=== PATIENT | male | born 1985 | race Caucasian/White ===

== ENCOUNTER 2017-01-19 18:00 | Inpatient (IN) | payer OTHER ==
[~2017-01-19] VITALS: Ht 177.8 cm; Wt 96.6 kg
--- NOTE | ~2017-01-19 | DS ---
Unit #: [id number] #: [id number] Patient: VANDANA HOLLIS [id number] [facility] [address] [place] [address] [id number] I MR#: [id number] NAME: VANDANA HOLLIS ROOM: [facility] Age: 31 Sex: M Admission Date: 01/19/2017 : 1985 Discharge Date: 01/23/2017 Attending Physician: Nguyễn Pal M.D. Primary Care Physician: Primary Care Physician No DISCHARGE SUMMARY REASON FOR ADMISSION Depression, opiate detox. DIAGNOSTIC STUDIES Laboratory data, urine drug screen positive for opiates. HOSPITAL COURSE The patient was admitted to inpatient unit, admitted on January 19 and Discharged on January 23, 2017. The patient was treated with group therapy, individual therapy, medication management, detox protocol, detox monitoring. The patient was responsive to treatment. Subsequently, the patient was discharged with the plan to follow up in outpatient program. DISCHARGE DIAGNOSES Psychiatric: [place] I Opiate use disorder, severe, F11.20. Sedative-hypnotic use disorder, severe, F13.20. Alcohol use disorder, severe, F10.20. Mood disorder, F32.9. [place] II Deferred. [place] III Hypertension. [place] IV Psychosocial stressors. [place] V INSTRUCTIONS TO PATIENT The patient is to follow up in outpatient clinic as well as with director social. DISCHARGE MEDICATIONS 1. Desyrel 100 mg at bedtime 2. Celexa 20 mg daily for depression CONDITION AT DISCHARGE The patient is pleasant, cooperative, denied any psychosis or any suicidal ideation. PROGNOSIS Guarded. DIET AND ACTIVITY As tolerated. Unit #: [id number] #: [id number] Patient: VANDANA HOLLIS Dictated by... Ludy Torres/regina TD: 01/24/2017 08:01 JOB #: [id number] DISCHARGE SUMMARY Page 1 of 1 X Nguyễn Pal MD X DISCHARGE SUMMARY
--- NOTE | ~2017-01-19 | PN ---
Unit #: [id number] #: [id number] Patient: NAHID GRIFFIN [id number] [facility] [address] [place] [address] [id number] MR#: [id number] NAME: NAHID GRIFFIN ROOM: [facility] Age: 31 Sex: M Admission Date: 01/19/2017 : 1985 Attending Physician: Nguyễn Pal M.D. Admitting Physician: Nguyễn Pal M.D. Primary Care Physician: Primary Care Physician Lola OLIVERA NOTES DATE 01/21/2017 DISCUSSION Nahid Griffin is a 31-year-old male seen on 01/21/2017. Patient interviewed. Chart reviewed. Obtained information from nursing staff. Patient was compliant, cooperative. Mood sad, dysphoric, flat affect, guarded. Patient tolerating medication fairly well. Patient's complete review of system unremarkable. MENTAL STATUS EXAMINATION General appearance, patient dressed casually. Attention span, concentration fair. Oriented in place and person. Mood and affect sad, dysphoric. Speech monotone. Thought process concrete. Patient denied any thoughts of harming self or others or any psychotic symptoms. Recent and remote memory poor. Insight and judgement poor. DIAGNOSES 1. Opiate use disorder, severe. 2. Sedative/hypnotic use disorder. 3. Alcohol use disorder. 4. Mood disorder NOS. ASSESSMENT/PLAN Advised to continue with current medication and therapeutic protocol. If needed, consider further adjustment of medication. Dictated by... Ludy Torres/sebastian TD: 01/22/2017 15:21 JOB #: [id number] Unit #: [id number] #: [id number] Patient: NAHID GRIFFIN SHANESTEFANIA PROGRESS NOTES Page 1 of 1 X Nguyễn Pal MD X PROGRESS NOTE
--- NOTE | ~2017-01-19 | PN ---
Unit #: [id number] #: [id number] Patient: NAHID GRIFFIN [id number] [facility] [address] [place] [address] [id number] I MR#: [id number] NAME: NAHID GRIFFIN ROOM: [facility] Age: 31 Sex: M Admission Date: 01/19/2017 : 1985 Attending Physician: Nguyễn Pal M.D. Admitting Physician: Nguyễn Pal M.D. Primary Care Physician: Primary Care Physician Lola [place] PROGRESS NOTES DATE 01/22/2017 DISCUSSION Nahid Griffin is a 31-year-old male seen on 01/22/2017. Patient interviewed. Chart reviewed. Obtained information from nursing staff. Patient compliant, cooperative. Mood sad, dysphoric, flat affect, guarded. Patient was able to maintain safe behavior. Complete review of system unremarkable. MENTAL STATUS EXAMINATION General appearance, patient dressed casually. Attention span, concentration fair. Oriented in time, place and person. Mood and affect sad, depressed, withdrawn. Speech monotone. Thought process concrete. Patient denied any thoughts of harming self or others or any psychotic symptoms. Recent and remote memory poor. Insight and judgement poor. DIAGNOSES 1. Opiate use disorder, severe. 2. Mood disorder NOS. 3. Sedative/hypnotic use disorder, severe. ASSESSMENT/PLAN Advised to continue with current medication and therapeutic protocol. If needed, consider further adjustment of medication. Dictated by... Ludy Torres/sebastian TD: 01/22/2017 21:22 JOB #: [id number] Unit #: [id number] #: [id number] Patient: NAHID GRIFFIN SHANESTEFANIA PROGRESS NOTES Page 1 of 1 X Nguyễn Pal MD PROGRESS NOTE
--- NOTE | ~2017-01-19 | PN ---
Unit #: [id number] #: [id number] Patient: NAHID HOLLIS [id number] [facility] [address] [place] [address] [id number] I MR#: [id number] NAME: NAHID HOLLIS ROOM: [facility] Age: 31 Sex: M Admission Date: 01/19/2017 : 1985 Attending Physician: Nguyễn Pal M.D. Admitting Physician: Nguyễn Pal M.D. Primary Care Physician: Primary Care Physician Lola [place] PROGRESS NOTES DATE OF SERVICE 01/20/2017 DISCUSSION Nahid is a 31-year-old male seen on 01/20/2017. Patient interviewed, chart reviewed. Obtained information from nursing staff. Patient was compliant and cooperative. Mood sad, dysphoric, flat, withdrawn. The patient reported still having withdrawal symptoms. Vital signs 98.2, 84, 16, 142/84. Complete review of systems unremarkable. MENTAL STATUS EXAMINATION General appearance, patient dressed casually. Attention span and concentration fair. Oriented to time, place and person. Mood and affect sad, depressed. Speech monotone. Thought process concrete. Patient denied any thoughts of harming self or others but guarded. Recent and remote memory poor. Insight and judgement poor. DIAGNOSES 1. Opiate use disorder severe. 2. Mood disorder NOS. 3. Sedative hypnotic use disorder severe. ASSESSMENT/PLAN Advise to continue with current medication and therapeutic protocol. If needed consider further adjustment of medication. Dictated by... Ludy Torres/paolo TD: 01/21/2017 03:25 JOB #: [id number] Unit #: [id number] #: [id number] Patient: NAHID HOLLIS PEASTEF[place] PROGRESS NOTES Page 1 of 1 X Nguyễn Pal MD PROGRESS NOTE
--- NOTE | ~2017-01-19 | PA ---
Unit #: [id number] #: [id number] Patient: VANDANA HOLLIS [id number] [facility] [address] [place] [address] [id number] I MR#: [id number] NAME: VANDANA HOLLIS ROOM: [facility] Age: 31 Sex: M Admission Date: 01/19/2017 : 1985 Date of Assessment: 01/20/2017 Attending Physician: Nguyễn Pal M.D. Admitting Physician: Nguyễn Pal M.D. Primary Care Physician: Primary Care Physician No PSYCHIATRIC ASSESSMENT INFORMANTS The patient reliability, fair informant and chart reliability, good. CHIEF COMPLAINT Opioid abuse and opioid withdrawal. HISTORY OF PRESENT ILLNESS Mr. Whitfield is a 31-year-old single white male, presented with the opioid abuse and sedative abuse, using 1 to 2 g of heroin IV, last use at 4 a.m. the patient reported using Klonopin. Feeling of hopelessness, sad, depressed, poor concentration, isolation. Denied any suicidal or homicidal ideation. The patient reported current stressors including legal problem, poor support system, unemployed. The patient lives with mother and father. Father has throat cancer. The patient is currently on no medication. History of alcoholism in father. The patient reported tobacco use, age of onset 16; alcohol, age of onset 14; opioid, age of onset 25; benzodiazepine, age of onset 23. The patient reported longest period of sobriety 9 months, last period of sobriety in 2013. The patient reported a history of blackout, hepatitis, withdrawal symptom, and IV drug use. Currently, reporting abdominal cramping, muscle cramping, diaphoresis, diarrhea, depressed mood, headache, irritability, nervousness, poor appetite, poor concentration, restlessness, and withdrawal seizure. Needing inpatient admission at this time for psychiatric stabilization. PAST PSYCHIATRIC HISTORY Remarkable for history of inpatient treatment at [facility] in 2013 and in 2014, [facility] and [facility] for detox. FAMILY HISTORY AND SOCIAL HISTORY The patient has a good support system. No history of abuse. No legal charges. MEDICAL HISTORY Remarkable for history of hypertension. Musculoskeletal; muscle strength and tone, no atrophy or abnormal movement. Gait normal. MEDICATION HISTORY None. ALLERGIES No known drug allergies. Unit #: [id number] #: [id number] Patient: VANDANA HOLLIS SUBSTANCE ABUSE HISTORY Please see above. REVIEW OF SYSTEMS HEENT: Eyes, clear. Ears, nose, mouth, and throat; clear. CARDIOVASCULAR: Unremarkable. RESPIRATORY: Unremarkable. GI: Unremarkable. : Unremarkable. SKIN: Unremarkable. LYMPH NODE: Unremarkable. NEUROLOGIC: Unremarkable. ENDOCRINE: Unremarkable. HEMATOLOGIC: Unremarkable. ALLERGIC/IMMUNOLOGIC: Unremarkable. MUSCULOSKELETAL: Muscle strength and tone, no atrophy or abnormal movement. Gait normal. MENTAL STATUS EXAMINATION CONSTITUTIONAL: Measurement of vital signs; temperature 98.3, heart rate 81, respiratory rate 20, oxygen saturation 96%, height 5 feet 10 inches, blood pressure 144/98, and weight 213 pounds. GENERAL APPEARANCE: The patient dressed casually. No facial deformity noted. MUSCULOSKELETAL: Please see above. PSYCHIATRIC EXAMINATION Description of speech; regular rate, normal volume, normal articulation, and coherent. Description of thought process, goal directed. Description of association, intact. Description of abnormal psychotic thinking; the patient denied any hallucination or delusions. Substance abuse and depression. Please see above for detail. Description of the patient's judgment: Concerning everyday activity, poor. Social situation, poor. Concerning psychiatric condition, poor. Complete mental status examination; oriented in time, place, and person. Recent and remote memory, fair. Attention span and concentration, fair. Language, able to name object and repeat phrases. Fund of knowledge, aware of current event and passive vocabulary intact. Mood and affect, sad and dysphoric. Insight and judgment, fair to poor. ASSETS AND LIABILITIES Assets, the patient is articulate and able to take care of his ADL. Liability, history of substance abuse and depression. ADMITTING DIAGNOSES Psychiatric: Opioid use disorder, severe, F11.20; sedative hypnotic use disorder, severe; F13.20; alcohol use disorder, severe, F10.20; and mood disorder, not otherwise specified, F32.9. Secondary diagnosis: Deferred. Medical diagnosis: Hypertension. Stressors: Psychosocial stressors. PSYCHIATRIC PLAN AND TREATMENT GOAL AND DISCHARGE PLAN 1. Advised to admit the patient on the inpatient unit. Provide safe, Unit #: [id number] #: [id number] Patient: VADNANA HOLLIS supportive, and structured environment. 2. Ordered labs; CBC, CMP, UA, and UDS. 3. Detox protocol and detox monitoring. 4. If needed, consider further adjustment of medication. The patient to attend group therapy, individual therapy, and chemical dependency group. Treatment goal to attain euthymic mood, gain insight into his problem, and learn coping skills. DISCHARGE PLAN Plan to stabilize the patient and consider followup in outpatient program. ESTIMATED LENGTH OF STAY 3 to 5 days. Dictated by... Nguyễn Pal M.D. JESSICA/katie TD: 01/20/2017 17:51 JOB #: [id number] PSYCHIATRIC ASSESSMENT Page 1 of 1 X Nguyễn Pal MD X PSYCHIATRIC ASSESSMENT
--- NOTE | ~2017-01-19 | HP ---
Unit #: [id number] #: [id number] Patient: NAHID HOLLIS [id number] [place] [address] [id number] I MR#: [id number] NAME: NAHID HOLLIS ROOM: P214 Age: 31 Sex: M Admission Date: 01/19/2017 : 1985 Attending Physician: Nguyễn Pal M.D. Admitting Physician: Nguyễn Pal M.D. Primary Care Physician: Primary Care Physician No HISTORY AND PHYSICAL HISTORY OF PRESENT ILLNESS Nahid is a 31 year old admitted to [address] [place] [address] because of his continued polysubstance abuse which includes benzodiazepines and IV heroin. PAST MEDICAL HISTORY 1. Long history of poly illicit substance abuse to include IV heroin and benzodiazepines. 2. History of withdrawal seizures. 3. Hepatitis C. PAST SURGICAL HISTORY Nothing reported. ALLERGIES No known drug allergies. SOCIAL HISTORY Smokes one-half pack per day. Drinks alcohol on occasion. Admits to a history of illicit substance abuse to include IV heroin. FAMILY HISTORY Medically noncontributory. REVIEW OF SYSTEMS CONSTITUTIONAL: No fever or chills. HEENT: Denies any sore throat, ear pain or runny nose. CARDIOVASCULAR: Denies chest pain, irregular heart rhythm or palpitations. CHEST: Denies shortness of breath or cough. No hemoptysis. GASTROINTESTINAL: Denies nausea, vomiting, diarrhea or chronic constipation. ENDOCRINE: Denies history of increased thirst or urination. No recent significant weight loss or gain. GENITOURINARY: Denies dysuria, frequency, or hematuria. SKIN: Denies any rashes. HEMATOLOGIC: Denies history of increased bleeding or bruising. MUSCULOSKELETAL: Denies any hot, swollen joints. No generalized muscle pain. NEUROLOGIC: Denies problems with vision or speech. No frequent, severe headaches. No numbness, tingling or weakness in any extremities. Denies loss of bladder or bowel control. CURRENT MEDICATIONS Unit #: [id number] #: [id number] Patient: NAHID HOLLIS 1. Detox protocol. 2. Desyrel 100 mg q.h.s. 3. Celexa 20 mg q.h.s. 4. Nicotine patch 14 mg q day PHYSICAL EXAMINATION GENERAL: Alert, well-nourished, in no apparent distress. VITAL SIGNS: Blood pressure 144/90, heart rate 80, respirations 16, temperature 98.6. WEIGHT: 213. HEIGHT: 5 foot 10 inches. SKIN: Warm and dry without rash or lesion. HEENT: Normocephalic. TMs not viewed. Oral and nasal passages clear. Conjunctivae clear. Pupils equal, round and reactive to light and accommodation. Extraocular movements intact. NECK: Supple without lymphadenopathy or thyromegaly. HEART: Regular rate and rhythm without murmur. LUNGS: Clear. ABDOMEN: Soft, nontender. : Not done. EXTREMITIES: No evidence of cyanosis, clubbing or edema. Moves all extremities without focal deficit. NEUROLOGICAL: Grossly within normal limits. Cranial Nerves: II: Visual schneider are intact. III, IV AND : Extraocular movements are intact. Pupils are equal, round and reactive to light. V: Facial sensation is grossly normal. VII: Facial movements and expression are normal. VIII: Auditory acuity grossly intact. IX, X: Uvula is midline. Phonation is normal. XI: Patient shrugs shoulders and turns head normally. XII: Tongue protrudes in the midline. Sensory and Motor Function: Sensory and motor sensation is grossly normal. Motor: moves all extremities well. Coordination: Gait is normal. Deep Tendon Reflexes: Intact. IMPRESSION Psychiatric admission. RECOMMENDATIONS PSYCHIATRIC: Per psychiatrist. MEDICAL: I see no contraindications to participating in facility's activities. MEDICAL PROGNOSIS Good. MEDICAL CONDITION Stable. Dictated by... Oumou Núñez P.A.-C. for Ludy Osorio/paolo Unit #: [id number] #: [id number] Patient: NAHID HOLLIS TD: 01/20/2017 22:57 JOB #: [id number] HISTORY AND PHYSICAL Page 1 of 1 X Oumou Núñez HISTORY AND PHYSICAL
[2017-01-20 09:46] LABS: BASOPHIL% 0.3 % (0-2.5); DIFF IND NO; EOSINOPHIL# 0.3 X10e3 (0-0.7); EOSINOPHIL% 3.3 % (0.0-7.0); HEMATOCRIT 41.4 % (38.0-50.0); HEMOGLOBIN 13.5 gm/dL (13.0-16.0); LYMPHOCYTE# 3.8 X10e3 (1.0-3.5); LYMPHOCYTE% 48.1 % (17.0-45.0); MEAN CELL VOLUME 85.7 FL (83-96); MEAN CORPUSCULAR HGB CONC 32.6 g/dL (30-36); MEAN PLATELET VOLUME 9.4 FL (6.5-11.5); MONOCYTE# 0.7 X10e3 (0-1.0); MONOCYTE% 9.2 % (3.0-12.0); NEUTROPHIL# 3.1 X10e3 (1.5-7.1); NEUTROPHIL% 39.1 % (40-75); PLATELET COUNT 212 X10e3 (140-420); RED BLOOD COUNT 4.84 X10e (3.90-5.60); RED CELL DISTRIBUTION WIDTH 14.1 % (11.0-15.5); WHITE BLOOD COUNT 7.8 X10e3 (4.0-10.5)
[2017-01-20 09:48] LABS: ALBUMIN SERUM 3.7 g/dL (3.5-5.0); BILIRUBIN,TOTAL 0.6 mg/dL (0.2-2.0); BUN/CREATININE RATIO 11.25; CALCIUM SERUM 9.6 mg/dL (8.4-10.2); CREATININE SERUM 0.8 mg/dL (0.6-1.4); GLOM FILT RATE Estimated 117.4 mL/min (>60); POTASSIUM 4.8 mmol/L (3.5-5.1); PROTEIN TOTAL SERUM 6.6 g/dL (6.0-8.3)
[2017-01-20 10:04] LABS: URINE APPEARANCE CLEAR; URINE BILIRUBIN NEG (NEG); URINE BLOOD NEG (NEG); URINE COLOR YELLOW; URINE GLUCOSE NEG (NEG); URINE KETONE NEG (NEG); URINE LEUKOCYTE ESTERASE NEG (NEG); URINE NITRATE NEG (NEG); URINE PH 6.5 (5-8); URINE PROTEIN NEG (NEG); URINE SPECIFIC GRAVITY 1.008 (1.003-1.035); URINE UROBILINOGEN 0.2 MG/DL (NEG)
[2017-01-20 10:21] LABS: AMPHETAMINE NEG (NEG); BARBITURATES NEG (NEG); BENZODIAZEPINES NEG (NEG); COCAINE NEG (NEG); MARIJUANA NEG (NEG); OPIATES POS (NEG); TRICYCLIC ANTIDEPRESSANTS POS (NEG); U METHADONE NEG (NEG)
== END 2017-01-23 10:24 | disposition home or self-care (01) | DRG 897 ==
LOC: P2S 20:18
PROVIDERS: Psychiatry & Neurology Psychiatry
PROC: HZ2ZZZZ Detoxification Services for Substance Abuse Treatment (ICD-10-PCS; principal; 2017-01-19)
DX: F11.20 Opioid dependence, uncomplicated (principal); F13.20 Sedative, hypnotic or anxiolytic dependence, uncomplicated; I10 Essential (primary) hypertension; F10.20 Alcohol dependence, uncomplicated; F39 Unspecified mood [affective] disorder; F17.210 Nicotine dependence, cigarettes, uncomplicated
CPT/HCPCS: 80053; 80307; 81003; 85025; 86592